=== PATIENT | female | born 1975 | race Hispanic/Latino ===

== ENCOUNTER 2017-04-26 20:29 | Emergency (ER) | payer MEDICAID ==
[2017-04-26] MEDS ORDERED: MECLIZINE HCL 25 MG TABLET ONE (20:45)
[2017-04-26 21:00] LABS: BILIRUBIN,URINE Negative (NEGATIVE); COLOR,URINE Yellow (YELLOW); GLUCOSE, URINE (UA) Negative (NEGATIVE); KETONES,URINE 15 mg/dL (NEGATIVE); LEUKOCYTE ESTERASE ,URINE Negative (NEGATIVE); NITRATE,URINE Negative (NEGATIVE); OCCULT BLOOD,URINE Nonhemolyzed Trace (NEGATIVE); PH,URINE 5.5 (5.0-8.0); PROTEIN,URINE Negative (NEGATIVE); UROBILINOGEN,URINE 0.2 mg/dL (0.2-1.0)
[2017-04-26 21:03] LABS: APPEARANCE,URINE SLIGHTLY CLOUDY (CLEAR)
[2017-04-26 21:07] LABS: HCG,QUAL RESULT NEGATIVE (NEGATIVE)
[2017-04-26 21:11] LABS: BACTERIA,URINE Few /HPF (None Seen); MUCUS,URINE Moderate LPF (None Seen); RBC,URINE None Seen /HPF (0-1); WBC,URINE None Seen /HPF (0-1)
== END 2017-04-26 21:04 | disposition home or self-care (01) ==
LOC: EDH 20:29
DX: G44.209 Tension-type headache, unspecified, not intractable (principal); R42 Dizziness and giddiness; E11.9 Type 2 diabetes mellitus without complications; I10 Essential (primary) hypertension; Z98.51 Tubal ligation status; Z88.0 Allergy status to penicillin
CPT/HCPCS: 81001; 81025

== ENCOUNTER 2017-07-16 22:46 | Emergency (ER) | payer MEDICAID ==
[2017-07-16 23:36] LABS: CREATININE 0.8 mg/dL (0.5-1.5); POTASSIUM 3.3 mmol/L (3.5-5.1)
[2017-07-16 23:42] LABS: BASOPHILS % (AUTO) 0.8 % (0.0-5.0); EOSINOPHILS % (AUTO) 1.6 % (0.0-8.0); HEMATOCRIT 27.6 % (36-48); LYMPHOCYTES % (AUTO) 25.2 % (21.0-51.0); MEAN CORPUSCULAR HEMOGLOBIN 18.9 pg (27.0-33.0); MEAN CORPUSCULAR HGB CONC 30.5 g/dL (32.0-36.0); MEAN CORPUSCULAR VOLUME 61.9 fL (79-99); MONOCYTES % (AUTO) 5.2 % (3.0-13.0); NEUTROPHILS % (AUTO) 67.2 % (40.0-77.0); PLATELET COUNT (AUTO) 366 K/uL (130-400); RED BLOOD CELL COUNT(AUTO) 4.46 MIL/uL (4.00-5.50); RED CELL DISTRIBUTION WIDTH 20.3 % (11.0-15.5); WHITE BLOOD COUNT (AUTO) 12.5 K/uL (4.8-10.8)
[2017-07-16 23:45] LABS: APPEARANCE,URINE Cloudy (CLEAR); BILIRUBIN,URINE Negative (NEGATIVE); COLOR,URINE Red (YELLOW); GLUCOSE, URINE (UA) Negative (NEGATIVE); KETONES,URINE Negative (NEGATIVE); LEUKOCYTE ESTERASE ,URINE Large (NEGATIVE); NITRATE,URINE Negative (NEGATIVE); OCCULT BLOOD,URINE Large (NEGATIVE); PH,URINE 6.5 (5.0-8.0); PROTEIN,URINE POS 1+ (NEGATIVE); UROBILINOGEN,URINE 0.2 mg/dL (0.2-1.0)
[2017-07-16 23:48] LABS: ALBUMIN 3.8 g/dL (3.5-5.0); BILIRUBIN,TOTAL 0.2 mg/dL (0.2-1.0); THYROID STIMULATING HORMONE 0.98 uIU/mL (0.36-3.74); TOTAL PROTEIN, SERUM 7.9 g/dL (6.0-8.3)
[2017-07-16 23:58] LABS: BACTERIA,URINE Few /HPF (None Seen); MUCUS,URINE None Seen LPF (None Seen); RBC,URINE TNTC /HPF (0-1); SQUAMOUS EPITHELIAL CELL,UR None Seen /HPF (0-2); YEAST,URINE BUDDING Few /HPF (None Seen)
[2017-07-16 23:59] LABS: HCG,QUAL RESULT NEGATIVE (NEGATIVE)
[2017-07-17 00:23] LABS: INR 0.92 (0.85-1.15); PROTHROMBIN TIME 9.5 SEC (9.6-11.6)
== END 2017-07-17 01:15 | disposition home or self-care (01) ==
LOC: EDH 22:46
DX: R00.2 Palpitations (principal); R06.00 Dyspnea, unspecified; D64.9 Anemia, unspecified; R31.9 Hematuria, unspecified; I10 Essential (primary) hypertension; E11.9 Type 2 diabetes mellitus without complications; K21.9 Gastro-esophageal reflux disease without esophagitis; J45.909 Unspecified asthma, uncomplicated; Z88.0 Allergy status to penicillin; Z88.8 Allergy status to other drugs, medicaments and biological substances
CPT/HCPCS: 36415; 80053; 81001; 81025; 84443; 85025; 85610; 85730; 93005

== ENCOUNTER 2017-07-30 01:06 | Emergency (ER) | payer MEDICAID ==
[2017-07-30 01:33] LABS: APPEARANCE,URINE Cloudy (CLEAR); BILIRUBIN,URINE Negative (NEGATIVE); COLOR,URINE Dark Yellow (YELLOW); GLUCOSE, URINE (UA) Negative (NEGATIVE); KETONES,URINE Negative (NEGATIVE); LEUKOCYTE ESTERASE ,URINE Moderate (NEGATIVE); NITRATE,URINE Negative (NEGATIVE); OCCULT BLOOD,URINE Negative (NEGATIVE); PROTEIN,URINE Trace (NEGATIVE)
[2017-07-30 01:36] LABS: HCG,QUAL RESULT NEGATIVE (NEGATIVE)
[2017-07-30 01:51] LABS: BACTERIA,URINE None Seen /HPF (None Seen); RBC,URINE None Seen /HPF (0-1); TRICHOMONAS,URINE Few /LPF (None Seen); WBC,URINE 26-50 /HPF (0-1)
[2017-07-30 01:52] LABS: MUCUS,URINE Many LPF (None Seen); SQUAMOUS EPITHELIAL CELL,UR Moderate /HPF (0-2)
[2017-07-30 01:56] LABS: EOSINOPHILS % (AUTO) 1.6 % (0.0-8.0); HEMATOCRIT 26.2 % (36-48); LYMPHOCYTES % (AUTO) 29.9 % (21.0-51.0); MEAN CORPUSCULAR HEMOGLOBIN 20.6 pg (27.0-33.0); MEAN CORPUSCULAR HGB CONC 32.6 g/dL (32.0-36.0); MEAN CORPUSCULAR VOLUME 63.2 fL (79-99); MONOCYTES % (AUTO) 4.6 % (3.0-13.0); NEUTROPHILS % (AUTO) 62.9 % (40.0-77.0); NUCLEATED RED BLOOD CELLS 0.1 % (0.0-0.19); PLATELET COUNT (AUTO) 351 K/uL (130-400); RED BLOOD CELL COUNT(AUTO) 4.15 MIL/uL (4.00-5.50); RED CELL DISTRIBUTION WIDTH 20.1 % (11.0-15.5); WHITE BLOOD COUNT (AUTO) 10.9 K/uL (4.8-10.8)
[2017-07-30] MEDS ORDERED: ONDANSETRON HCL MDV 20ML 2 MG/ML VIAL ONE (01:56)
[2017-07-30] MEDS ORDERED: MORPHINE SULFATE 4 MG/1ML SYG ONE (01:57)
[2017-07-30 02:04] LABS: CREATININE 0.6 mg/dL (0.5-1.5); POTASSIUM 3.6 mmol/L (3.5-5.1)
[2017-07-30 02:08] LABS: ALBUMIN 3.6 g/dL (3.5-5.0); BILIRUBIN,TOTAL 0.2 mg/dL (0.2-1.0); TOTAL PROTEIN, SERUM 7.4 g/dL (6.0-8.3)
[2017-07-30] MEDS ORDERED: SODIUM CHLORIDE 0.9% 1000ML 1,000 ML IV ONE (02:41)
[2017-07-30] MEDS ORDERED: CEFTRIAXONE SODIUM 1 GM ONE (02:41)
[2017-07-30] MEDS ORDERED: METRONIDAZOLE 500 MG TABLET ONE (02:41)
[2017-07-30] MEDS ORDERED: KETOROLAC TROMETHAMINE 30MG/ML ONE (07:01)
== END 2017-07-30 07:21 | disposition home or self-care (01) ==
LOC: EDH 01:06
DX: N39.0 Urinary tract infection, site not specified (principal); A59.03 Trichomonal cystitis and urethritis; N83.292 Other ovarian cyst, left side; D64.9 Anemia, unspecified; J45.909 Unspecified asthma, uncomplicated; E11.9 Type 2 diabetes mellitus without complications; K21.9 Gastro-esophageal reflux disease without esophagitis; I10 Essential (primary) hypertension; Z88.0 Allergy status to penicillin; Z88.8 Allergy status to other drugs, medicaments and biological substances; Z98.51 Tubal ligation status; Z90.49 Acquired absence of other specified parts of digestive tract; Z98.890 Other specified postprocedural states
CPT/HCPCS: 36415; 74176; 76856; 80053; 81001; 81025; 85025; 87088; 96361; 96374; 96375; 99285; A4218; J0696; J1885; J2270; J7030

== ENCOUNTER 2017-08-30 03:18 | Emergency (ER) | payer MEDICAID ==
[2017-08-30 03:40] LABS: APPEARANCE,URINE Cloudy (CLEAR); BILIRUBIN,URINE Negative (NEGATIVE); COLOR,URINE Yellow (YELLOW); GLUCOSE, URINE (UA) Negative (NEGATIVE); KETONES,URINE Trace mg/dL (NEGATIVE); LEUKOCYTE ESTERASE ,URINE Large (NEGATIVE); NITRATE,URINE Negative (NEGATIVE); OCCULT BLOOD,URINE Negative (NEGATIVE); PROTEIN,URINE Negative (NEGATIVE); UROBILINOGEN,URINE 0.2 mg/dL (0.2-1.0)
[2017-08-30 03:42] LABS: HCG,QUAL RESULT NEGATIVE (NEGATIVE)
[2017-08-30 03:49] LABS: BACTERIA,URINE Few /HPF (None Seen)
[2017-08-30 03:50] LABS: TRICHOMONAS,URINE Few /LPF (None Seen)
[2017-08-30] MEDS ORDERED: MORPHINE SULFATE 8 MG/ML VIAL ONE (04:08)
[2017-08-30] MEDS ORDERED: ONDANSETRON HCL MDV 20ML 2 MG/ML VIAL ONE (04:08)
[2017-08-30 04:31] LABS: BASOPHILS % (AUTO) 0.8 % (0.0-5.0); EOSINOPHILS % (AUTO) 1.2 % (0.0-8.0); HEMATOCRIT 33.4 % (36-48); LYMPHOCYTES % (AUTO) 27.2 % (21.0-51.0); MEAN CORPUSCULAR HEMOGLOBIN 25.4 pg (27.0-33.0); MEAN CORPUSCULAR VOLUME 74.8 fL (79-99); MONOCYTES % (AUTO) 4.9 % (3.0-13.0); NEUTROPHILS % (AUTO) 65.9 % (40.0-77.0); PLATELET COUNT (AUTO) 245 K/uL (130-400); RED BLOOD CELL COUNT(AUTO) 4.47 MIL/uL (4.00-5.50); RED CELL DISTRIBUTION WIDTH 34.1 % (11.0-15.5); WHITE BLOOD COUNT (AUTO) 10.5 K/uL (4.8-10.8)
[2017-08-30 04:42] LABS: CREATININE 0.6 mg/dL (0.5-1.5); POTASSIUM 3.3 mmol/L (3.5-5.1)
[2017-08-30 04:46] LABS: ALBUMIN 3.7 g/dL (3.5-5.0); BILIRUBIN,TOTAL 0.4 mg/dL (0.2-1.0); TOTAL PROTEIN, SERUM 7.2 g/dL (6.0-8.3)
[2017-08-30] MEDS ORDERED: LEVOFLOXACIN 750 MG/D5W 150 ML 150 ML ONE (05:18)
[2017-08-30] MEDS ORDERED: IOPAMIDOL-370 75 ML VIAL IV ONE (05:32)
== END 2017-08-30 07:22 | disposition home or self-care (01) ==
LOC: EDH 03:18
DX: N83.292 Other ovarian cyst, left side (principal); N39.0 Urinary tract infection, site not specified; D64.9 Anemia, unspecified; J45.909 Unspecified asthma, uncomplicated; E11.9 Type 2 diabetes mellitus without complications; K21.9 Gastro-esophageal reflux disease without esophagitis; I10 Essential (primary) hypertension; Z98.51 Tubal ligation status; Z90.49 Acquired absence of other specified parts of digestive tract; Z98.890 Other specified postprocedural states; Z88.0 Allergy status to penicillin; Z88.8 Allergy status to other drugs, medicaments and biological substances
CPT/HCPCS: 36415; 74177; 80053; 81001; 81025; 82150; 83690; 85025; 87088; 96365; 96366; 96375; 99285; J1956; J2270; Q9967

== ENCOUNTER 2017-10-03 14:01 | Emergency (ER) | payer MEDICAID ==
[2017-10-03 14:31] LABS: BASOPHILS % (AUTO) 0.8 % (0.0-5.0); EOSINOPHILS % (AUTO) 1.6 % (0.0-8.0); HEMATOCRIT 43.1 % (36-48); LYMPHOCYTES % (AUTO) 22.2 % (21.0-51.0); MEAN CORPUSCULAR HGB CONC 33.9 g/dL (32.0-36.0); MEAN CORPUSCULAR VOLUME 82.4 fL (79-99); MONOCYTES % (AUTO) 3.8 % (3.0-13.0); NEUTROPHILS % (AUTO) 71.6 % (40.0-77.0); PLATELET COUNT (AUTO) 201 K/uL (130-400); RED BLOOD CELL COUNT(AUTO) 5.23 MIL/uL (4.00-5.50); RED CELL DISTRIBUTION WIDTH 26.4 % (11.0-15.5)
[2017-10-03 15:35] LABS: BILIRUBIN,URINE Small (NEGATIVE); GLUCOSE, URINE (UA) Negative (NEGATIVE); KETONES,URINE Trace mg/dL (NEGATIVE); LEUKOCYTE ESTERASE ,URINE Moderate (NEGATIVE); NITRATE,URINE Negative (NEGATIVE); OCCULT BLOOD,URINE Large (NEGATIVE); PH,URINE 5.5 (5.0-8.0); PROTEIN,URINE POS 2+ (NEGATIVE)
[2017-10-03 15:39] LABS: APPEARANCE,URINE CLOUDY (CLEAR)
[2017-10-03 15:40] LABS: COLOR,URINE RED (YELLOW)
[2017-10-03 15:41] LABS: BACTERIA,URINE Rare /HPF (None Seen); RBC,URINE Full Field /HPF (0-1)
[2017-10-03 15:42] LABS: SQUAMOUS EPITHELIAL CELL,UR None Seen /HPF (0-2)
== END 2017-10-03 16:00 | disposition home or self-care (01) ==
LOC: EDH 14:01
DX: D25.9 Leiomyoma of uterus, unspecified (principal); N92.0 Excessive and frequent menstruation with regular cycle; N39.0 Urinary tract infection, site not specified; J45.909 Unspecified asthma, uncomplicated; D64.9 Anemia, unspecified; E11.9 Type 2 diabetes mellitus without complications; K21.9 Gastro-esophageal reflux disease without esophagitis; I10 Essential (primary) hypertension; Z98.51 Tubal ligation status; Z90.49 Acquired absence of other specified parts of digestive tract; Z98.890 Other specified postprocedural states; Z88.0 Allergy status to penicillin; Z88.8 Allergy status to other drugs, medicaments and biological substances
CPT/HCPCS: 36415; 76856; 81001; 84702; 85025

== ENCOUNTER 2018-04-05 07:12 | Emergency (ER) | payer MEDICAID ==
[2018-04-05 08:53] LABS: APPEARANCE,URINE Clear (CLEAR); BILIRUBIN,URINE Negative (NEGATIVE); COLOR,URINE Yellow (YELLOW); GLUCOSE, URINE (UA) Negative (NEGATIVE); KETONES,URINE Negative (NEGATIVE); LEUKOCYTE ESTERASE ,URINE Negative (NEGATIVE); NITRATE,URINE Negative (NEGATIVE); OCCULT BLOOD,URINE Small (NEGATIVE); PH,URINE 5.5 (5.0-8.0); PROTEIN,URINE Negative (NEGATIVE); UROBILINOGEN,URINE 0.2 mg/dL (0.2-1.0)
[2018-04-05 09:00] LABS: HCG,QUAL RESULT NEGATIVE (NEGATIVE)
[2018-04-05 09:19] LABS: BACTERIA,URINE Rare /HPF (None Seen)
[2018-04-05 09:20] LABS: RBC,URINE 0-1 /HPF (0-1); WBC,URINE None Seen /HPF (0-1)
[2018-04-05] MEDS ORDERED: NAPROXEN 250 MG TAB ONE (09:25)
== END 2018-04-05 09:30 | disposition home or self-care (01) ==
LOC: EDH 07:12
DX: D25.9 Leiomyoma of uterus, unspecified (principal); R10.2 Pelvic and perineal pain; J45.909 Unspecified asthma, uncomplicated; E11.9 Type 2 diabetes mellitus without complications; K21.9 Gastro-esophageal reflux disease without esophagitis; I10 Essential (primary) hypertension; E07.9 Disorder of thyroid, unspecified; Z90.49 Acquired absence of other specified parts of digestive tract; Z98.51 Tubal ligation status; Z88.0 Allergy status to penicillin; Z88.8 Allergy status to other drugs, medicaments and biological substances
CPT/HCPCS: 81001; 81025

== ENCOUNTER 2018-12-04 13:08 | Emergency (ER) | payer MEDICAID | END 2018-12-04 13:54 | disposition home or self-care (01) | LOC: EDH 13:08 | DX: B02.9 Zoster without complications (principal); J45.909 Unspecified asthma, uncomplicated; E11.9 Type 2 diabetes mellitus without complications; K21.9 Gastro-esophageal reflux disease without esophagitis; I10 Essential (primary) hypertension; E07.9 Disorder of thyroid, unspecified; Z88.0 Allergy status to penicillin; Z88.8 Allergy status to other drugs, medicaments and biological substances ==

== ENCOUNTER 2020-06-29 15:16 | Emergency (ER) | payer MEDICAID ==
[2020-06-29] MEDS ORDERED: SODIUM CHLORIDE 0.9% 1000ML 1,000 ML IV ONE (15:46)
[2020-06-29] MEDS ORDERED: ACETAMINOPHEN-CODEINE 300/30MG TAB ONE (15:46)
[2020-06-29 15:47] LABS: BASOPHILS % (AUTO) 0.7 % (0.0-5.0); EOSINOPHILS % (AUTO) 2.8 % (0.0-8.0); HEMATOCRIT 38.8 % (36-48); LYMPHOCYTES % (AUTO) 33.7 % (21.0-51.0); MEAN CORPUSCULAR HEMOGLOBIN 30.4 pg (27.0-33.0); MEAN CORPUSCULAR HGB CONC 35.6 g/dL (32.0-36.0); MEAN CORPUSCULAR VOLUME 85.5 fL (79-99); MONOCYTES % (AUTO) 5.4 % (3.0-13.0); PLATELET COUNT (AUTO) 221 K/uL (130-400); RED BLOOD CELL COUNT(AUTO) 4.54 MIL/uL (4.00-5.50)
[2020-06-29 16:04] LABS: BILIRUBIN,TOTAL 0.3 mg/dL (0.2-1.0); CREATININE 0.9 mg/dL (0.5-1.5); TOTAL PROTEIN, SERUM 7.4 g/dL (6.0-8.3)
[2020-06-29 16:05] LABS: POTASSIUM 2.9 mmol/L (3.5-5.1)
[2020-06-29] MEDS ORDERED: POTASSIUM BICARB/CIT AC 25 MEQ TABLET.EFF ONE (16:38)
[2020-06-29 16:57] LABS: APPEARANCE,URINE Clear (CLEAR); BILIRUBIN,URINE Negative (NEGATIVE); COLOR,URINE Yellow (YELLOW); GLUCOSE, URINE (UA) Negative (NEGATIVE); KETONES,URINE Negative (NEGATIVE); LEUKOCYTE ESTERASE ,URINE Negative (NEGATIVE); NITRATE,URINE Negative (NEGATIVE); OCCULT BLOOD,URINE Negative (NEGATIVE); PH,URINE 6.5 (5.0-8.0); PROTEIN,URINE Negative (NEGATIVE); UROBILINOGEN,URINE 0.2 mg/dL (0.2-1.0)
== END 2020-06-29 18:05 | disposition home or self-care (01) ==
LOC: EDH 15:16
DX: H66.92 Otitis media, unspecified, left ear (principal); E86.0 Dehydration; J45.909 Unspecified asthma, uncomplicated; T50.905A Adverse effect of unspecified drugs, medicaments and biological substances, initial encounter; E11.9 Type 2 diabetes mellitus without complications; K21.9 Gastro-esophageal reflux disease without esophagitis; I10 Essential (primary) hypertension; Z88.8 Allergy status to other drugs, medicaments and biological substances; Y92.89 Other specified places as the place of occurrence of the external cause
CPT/HCPCS: 36415; 80053; 81003; 81025; 85025; 93005 ×2; 96360; 96361; 99284; J7030

== ENCOUNTER 2020-12-30 14:10 | Emergency (ER) | payer MEDICAID ==
[~2020-12-30] VITALS: Ht 149.9 cm; Wt 88.9 kg
[2020-12-30 15:32] VITALS: BP 147/91
[2020-12-30 15:37] LABS: BASOPHILS % (AUTO) 0.5 % (0.0-5.0); EOSINOPHILS % (AUTO) 1.9 % (0.0-8.0); HEMATOCRIT 37.6 % (36-48); LYMPHOCYTES % (AUTO) 27.3 % (21.0-51.0); MEAN CORPUSCULAR HEMOGLOBIN 30.2 pg (27.0-33.0); MEAN CORPUSCULAR HGB CONC 33.8 g/dL (32.0-36.0); MEAN CORPUSCULAR VOLUME 89.3 fL (79-99); MONOCYTES % (AUTO) 4.4 % (3.0-13.0); NEUTROPHILS % (AUTO) 65.4 % (40.0-77.0); PLATELET COUNT (AUTO) 189 K/uL (130-400); RED BLOOD CELL COUNT(AUTO) 4.21 MIL/uL (4.00-5.50); RED CELL DISTRIBUTION WIDTH 13.4 % (11.0-15.5); WHITE BLOOD COUNT (AUTO) 9.9 K/uL (4.8-10.8)
[2020-12-30 15:51] LABS: CREATININE 0.7 mg/dL (0.5-1.5); POTASSIUM 3.4 mmol/L (3.5-5.1)
[2020-12-30 15:56] LABS: ALBUMIN 3.3 g/dL (3.5-5.0); BILIRUBIN,TOTAL 0.3 mg/dL (0.2-1.0); TOTAL PROTEIN, SERUM 6.7 g/dL (6.0-8.3)
[2020-12-30 17:20] VITALS: BP 138/82
== END 2020-12-30 17:33 | disposition home or self-care (01) ==
LOC: EDH 14:10
DX: R53.83 Other fatigue (principal); Z20.822 Contact with and (suspected) exposure to COVID-19; I10 Essential (primary) hypertension; M32.9 Systemic lupus erythematosus, unspecified; J45.909 Unspecified asthma, uncomplicated; E66.9 Obesity, unspecified; Z79.52 Long term (current) use of systemic steroids; Z88.8 Allergy status to other drugs, medicaments and biological substances; Z68.39 Body mass index [BMI] 39.0-39.9, adult
CPT/HCPCS: 36415; 71045; 80053; 85025; 87635; 99284; C9803

== ENCOUNTER → 2021-03-29 | Outpatient (CLI) | payer MEDICAID | END | disposition home or self-care (01) | LOC: OIH 08:53 | PROVIDERS: ATTEND Internal Medicine Cardiovascular Disease | DX: I11.9 Hypertensive heart disease without heart failure (principal); E66.9 Obesity, unspecified | CPT/HCPCS: 93306; 93356 ==

== ENCOUNTER 2021-04-25 17:28 | Emergency (ER) | payer MEDICAID ==
[~2021-04-25] VITALS: Ht 147.3 cm; Wt 93.9 kg
[2021-04-25] MEDS ORDERED: CYCLOBENZAPRINE HCL 10 MG TABLET PO ONE (23:00)
[2021-04-25] MEDS ORDERED: KETOROLAC 30MG VIAL (30MG/ML) IV ONE (23:00)
[2021-04-25] MEDS ORDERED: PROMETHAZINE HCL 25 MG/ML 1ML AMPULE IM ONE ×2 (23:00→23:30)
[2021-04-25] MEDS ORDERED: 0.9%NACL 1000ML 1,000 ML IV ONE (23:00)
[2021-04-25 23:03] LABS: BASOPHILS % (AUTO) 0.6 % (0.0-5.0); EOSINOPHILS % (AUTO) 1.6 % (0.0-8.0); HEMATOCRIT 44.5 % (36-48); LYMPHOCYTES % (AUTO) 23.5 % (21.0-51.0); MEAN CORPUSCULAR HEMOGLOBIN 29.1 pg (27.0-33.0); MEAN CORPUSCULAR HGB CONC 34.2 g/dL (32.0-36.0); MEAN CORPUSCULAR VOLUME 85.2 fL (79-99); MONOCYTES % (AUTO) 3.4 % (3.0-13.0); NEUTROPHILS % (AUTO) 70.3 % (40.0-77.0); PLATELET COUNT (AUTO) 325 K/uL (130-400); RED BLOOD CELL COUNT(AUTO) 5.22 MIL/uL (4.00-5.50); RED CELL DISTRIBUTION WIDTH 13.2 % (11.0-15.5); WHITE BLOOD COUNT (AUTO) 17.6 K/uL (4.8-10.8)
[2021-04-25 23:07] LABS: APPEARANCE,URINE Cloudy (CLEAR); BILIRUBIN,URINE Negative (NEGATIVE); COLOR,URINE Yellow (YELLOW); GLUCOSE, URINE (UA) Negative (NEGATIVE); KETONES,URINE Negative (NEGATIVE); LEUKOCYTE ESTERASE ,URINE Negative (NEGATIVE); NITRATE,URINE Negative (NEGATIVE); OCCULT BLOOD,URINE Negative (NEGATIVE); PROTEIN,URINE Negative (NEGATIVE); UROBILINOGEN,URINE 0.2 mg/dL (0.2-1.0)
[2021-04-25 23:10] LABS: CREATININE 0.8 mg/dL (0.5-1.5); POTASSIUM 3.4 mmol/L (3.5-5.1)
[2021-04-25 23:12] LABS: ALBUMIN 4.3 g/dL (3.5-5.0); BILIRUBIN,TOTAL 0.3 mg/dL (0.2-1.0); TOTAL PROTEIN, SERUM 8.2 g/dL (6.0-8.3)
[2021-04-26 00:32] VITALS: BP 125/87
== END 2021-04-26 00:48 | disposition home or self-care (01) ==
LOC: EDH 17:52
DX: G43.909 Migraine, unspecified, not intractable, without status migrainosus (principal); J45.909 Unspecified asthma, uncomplicated; K21.9 Gastro-esophageal reflux disease without esophagitis; Z20.822 Contact with and (suspected) exposure to COVID-19; Z90.710 Acquired absence of both cervix and uterus; Z90.49 Acquired absence of other specified parts of digestive tract; Z98.51 Tubal ligation status; Z79.899 Other long term (current) drug therapy
CPT/HCPCS: 36415; 80053; 81003; 85025; 87635; 87804 ×2; 96361; 96372; 96374; 99284; C9803; J1885; J2550 ×2

== ENCOUNTER 2021-12-06 21:24 | Emergency (ER) | payer MEDICAID ==
[~2021-12-06] VITALS: Ht 147.3 cm; Wt 89.4 kg
[2021-12-06 21:56] LABS: BASOPHILS % (AUTO) 0.5 % (0.0-5.0); EOSINOPHILS % (AUTO) 1.7 % (0.0-8.0); HEMATOCRIT 41.5 % (36-48); LYMPHOCYTES % (AUTO) 28.1 % (21.0-51.0); MEAN CORPUSCULAR HEMOGLOBIN 29.8 pg (27.0-33.0); MEAN CORPUSCULAR HGB CONC 34.2 g/dL (32.0-36.0); MEAN CORPUSCULAR VOLUME 87.2 fL (79-99); MONOCYTES % (AUTO) 5.6 % (3.0-13.0); NEUTROPHILS % (AUTO) 63.7 % (40.0-77.0); PLATELET COUNT (AUTO) 245 K/uL (130-400); RED BLOOD CELL COUNT(AUTO) 4.76 MIL/uL (4.00-5.50); RED CELL DISTRIBUTION WIDTH 12.6 % (11.0-15.5); WHITE BLOOD COUNT (AUTO) 15.5 K/uL (4.8-10.8)
[2021-12-06 21:57] LABS: APPEARANCE,URINE CLOUDY (CLEAR); BILIRUBIN,URINE NEGATIVE (NEGATIVE); COLOR,URINE YELLOW (YELLOW); GLUCOSE, URINE (UA) NEGATIVE (NEGATIVE); KETONES,URINE NEGATIVE (NEGATIVE); LEUKOCYTE ESTERASE ,URINE MODERATE (NEGATIVE); NITRATE,URINE POSITIVE (NEGATIVE); OCCULT BLOOD,URINE LARGE (NEGATIVE); PROTEIN,URINE 100 mg/dL (NEGATIVE); UROBILINOGEN,URINE 0.2 mg/dL (0.2-1.0)
[2021-12-06 22:05] LABS: WBC,URINE 51-100 /HPF (0-1)
[2021-12-06 22:06] LABS: BACTERIA,URINE Moderate /HPF (None Seen); MUCUS,URINE Few LPF (None Seen); SQUAMOUS EPITHELIAL CELL,UR Few /HPF (0-2)
[2021-12-06] MEDS ORDERED: KETOROLAC 15MG/ML VIAL (15MG/ML) ONE (22:12)
[2021-12-06] MEDS ORDERED: PHENAZOPYRIDINE HCL 200 MG TABLET ONE (22:12)
[2021-12-06] MEDS ORDERED: CEFTRIAXONE 1G VIAL ONE (22:12)
[2021-12-06 22:21] LABS: CREATININE 0.7 mg/dL (0.5-1.5); POTASSIUM 3.7 mmol/L (3.5-5.1)
[2021-12-06 22:26] LABS: ALBUMIN 4.1 g/dL (3.5-5.0); TOTAL PROTEIN, SERUM 7.8 g/dL (6.0-8.3)
[2021-12-06] MEDS ORDERED: CEFTRIAXONE 1G VIAL IVP ONE (22:30)
[2021-12-06] MEDS ORDERED: PHENAZOPYRIDINE HCL 200 MG TABLET PO ONE (22:30)
[2021-12-06] MEDS ORDERED: KETOROLAC 15MG/ML VIAL (15MG/ML) IV ONE (22:30)
[2021-12-06] MEDS ORDERED: CEPH500B PO (22:45)
[2021-12-06] MEDS ORDERED: PHEN-847 PO (22:45)
[2021-12-06 22:46] VITALS: BP 154/85
== END 2021-12-06 23:02 | disposition home or self-care (01) ==
LOC: EDH 21:24
DX: N39.0 Urinary tract infection, site not specified (principal); I10 Essential (primary) hypertension; J45.909 Unspecified asthma, uncomplicated; K21.9 Gastro-esophageal reflux disease without esophagitis; M32.9 Systemic lupus erythematosus, unspecified; Z79.1 Long term (current) use of non-steroidal anti-inflammatories (NSAID); Z88.8 Allergy status to other drugs, medicaments and biological substances; Z90.49 Acquired absence of other specified parts of digestive tract; Z90.721 Acquired absence of ovaries, unilateral
CPT/HCPCS: 99284; 96374; 96375; 80053; 85025; 87077; 87088; 87186; 81001; 36415; J0696; J1885

== ENCOUNTER 2022-05-09 17:34 | Emergency (ER) | payer MEDICAID ==
[~2022-05-09] VITALS: Ht 147.3 cm; Wt 93.4 kg
[~2022-05-09 17:34] MED LIST: CEPH500B PO; NAPR-1180 PO; NIRM1TAB5 PO; PHEN-847 PO
[2022-05-09] MEDS ORDERED: ACETAMINOPHEN 500 MG TABLET PO ONE (18:00)
[2022-05-09 18:56] LABS: BASOPHILS % (AUTO) 0.8 % (0.0-5.0); EOSINOPHILS % (AUTO) 2.7 % (0.0-8.0); LYMPHOCYTES % (AUTO) 29.7 % (21.0-51.0); MEAN CORPUSCULAR HEMOGLOBIN 29.9 pg (27.0-33.0); MEAN CORPUSCULAR VOLUME 87.9 fL (79-99); MONOCYTES % (AUTO) 5.9 % (3.0-13.0); NEUTROPHILS % (AUTO) 60.6 % (40.0-77.0); PLATELET COUNT (AUTO) 237 K/uL (130-400); RED BLOOD CELL COUNT(AUTO) 4.55 MIL/uL (4.00-5.50); RED CELL DISTRIBUTION WIDTH 12.3 % (11.0-15.5); WHITE BLOOD COUNT (AUTO) 9.8 K/uL (4.8-10.8)
[2022-05-09 19:00] LABS: APPEARANCE,URINE CLEAR (CLEAR); BILIRUBIN,URINE NEGATIVE (NEGATIVE); COLOR,URINE LIGHT-YELLOW (YELLOW); GLUCOSE, URINE (UA) NEGATIVE (NEGATIVE); KETONES,URINE NEGATIVE (NEGATIVE); LEUKOCYTE ESTERASE ,URINE NEGATIVE Leu/uL (NEGATIVE); NITRATE,URINE NEGATIVE (NEGATIVE); OCCULT BLOOD,URINE NEGATIVE (NEGATIVE); PROTEIN,URINE 10 mg/dL (NEGATIVE); UROBILINOGEN,URINE 0.2 mg/dL (0.2-1.0)
[2022-05-09 19:02] LABS: BACTERIA,URINE RARE /HPF (None Seen); MUCUS,URINE RARE LPF (None Seen); SQUAMOUS EPITHELIAL CELL,UR MOD /HPF (0-2)
[2022-05-09 19:07] LABS: CREATININE 0.9 mg/dL (0.5-1.5); POTASSIUM 3.2 mmol/L (3.5-5.1)
[2022-05-09 19:12] LABS: ALBUMIN 3.8 g/dL (3.5-5.0); TOTAL PROTEIN, SERUM 7.2 g/dL (6.0-8.3)
[2022-05-09 19:54] VITALS: BP 145/92
== END 2022-05-09 21:09 | disposition home or self-care (01) ==
LOC: EDH 17:34
DX: B34.9 Viral infection, unspecified (principal); R50.9 Fever, unspecified; R53.1 Weakness; F41.9 Anxiety disorder, unspecified; J45.909 Unspecified asthma, uncomplicated; K21.9 Gastro-esophageal reflux disease without esophagitis; I10 Essential (primary) hypertension; Z79.1 Long term (current) use of non-steroidal anti-inflammatories (NSAID); Z20.822 Contact with and (suspected) exposure to COVID-19; Z88.8 Allergy status to other drugs, medicaments and biological substances; Z90.49 Acquired absence of other specified parts of digestive tract; Z90.721 Acquired absence of ovaries, unilateral
CPT/HCPCS: 99283; 87635; 80053; 85025; 81001; 36415; C9803

== ENCOUNTER 2022-10-09 21:55 | Observation (INO) | payer MEDICAID ==
[~2022-10-09] VITALS: Ht 147.3 cm; Wt 100.7 kg
[2022-10-09] MEDS ORDERED: NITROGLYCERIN 0.4 MG SL TAB SL ONE (22:04)
[2022-10-09] MEDS: NITROGLYCERIN 0.4 MG SL TAB SL PRN ×2 (22:10→22:15)
[2022-10-09] MEDS ORDERED: ACETAMINOPHEN 500 MG TABLET ONE (22:26)
[2022-10-09] MEDS ORDERED: ONDANSETRON 4MG INJ ONE (22:27)
[2022-10-09] MEDS ORDERED: ASPIRIN 81 MG EC TAB PO ONE (22:30)
[2022-10-09 22:47] LABS: BASOPHILS % (AUTO) 0.6 % (0.0-5.0); EOSINOPHILS % (AUTO) 2.4 % (0.0-8.0); HEMATOCRIT 39.1 % (36-48); LYMPHOCYTES % (AUTO) 26.9 % (21.0-51.0); MEAN CORPUSCULAR HEMOGLOBIN 29.1 pg (27.0-33.0); MEAN CORPUSCULAR HGB CONC 34.3 g/dL (32.0-36.0); MONOCYTES % (AUTO) 6.1 % (3.0-13.0); NEUTROPHILS % (AUTO) 63.4 % (40.0-77.0); PLATELET COUNT (AUTO) 217 K/uL (130-400); WHITE BLOOD COUNT (AUTO) 8.6 K/uL (4.8-10.8)
[2022-10-09 23:05] LABS: INR 0.93 (0.85-1.15); PROTHROMBIN TIME 10.5 SEC (9.6-11.6)
[2022-10-09 23:06] LABS: PARTIAL THROMBOPLASTIN TIME 28.8 SEC (26.3-35.5)
[2022-10-09 23:07] LABS: BILIRUBIN,URINE NEGATIVE (NEGATIVE); COLOR,URINE YELLOW (YELLOW); GLUCOSE, URINE (UA) 30 mg/dL (NEGATIVE); KETONES,URINE NEGATIVE (NEGATIVE); LEUKOCYTE ESTERASE ,URINE 75 Leu/uL (NEGATIVE); NITRATE,URINE NEGATIVE (NEGATIVE); PH,URINE 5.5 (5.0-8.0); PROTEIN,URINE 30 mg/dL (NEGATIVE)
[2022-10-09 23:08] LABS: CREATININE 0.6 mg/dL (0.5-1.5); POTASSIUM 3.4 mmol/L (3.5-5.1)
[2022-10-09 23:10] LABS: APPEARANCE,URINE HAZY (CLEAR)
[2022-10-09 23:11] LABS: TOTAL PROTEIN, SERUM 7.4 g/dL (6.0-8.3)
[2022-10-09 23:13] LABS: MUCUS,URINE FEW LPF (None Seen); RBC,URINE 0-1 /HPF (0-1); SQUAMOUS EPITHELIAL CELL,UR MOD /HPF (0-2)
[2022-10-10 00:36] LABS: B-TYPE NATRIURETIC PEPTIDE 40 pg/mL (0-100)
[2022-10-10 03:20] VITALS: BP 156/83
[2022-10-10] MEDS ORDERED: ACETAMINOPHEN 500 MG TABLET ONE (03:21)
== END 2022-10-10 03:30 | disposition left against medical advice (07) ==
LOC: EDH 21:55 → EDHIP 21:56
PROVIDERS: ADMIT Internal Medicine Hematology & Oncology; ATTEND Internal Medicine Hematology & Oncology
DX: I24.9 Acute ischemic heart disease, unspecified (principal); Z20.822 Contact with and (suspected) exposure to COVID-19; I10 Essential (primary) hypertension; J45.909 Unspecified asthma, uncomplicated; K21.9 Gastro-esophageal reflux disease without esophagitis; F41.9 Anxiety disorder, unspecified; Z79.899 Other long term (current) drug therapy; Z98.890 Other specified postprocedural states; Z90.710 Acquired absence of both cervix and uterus; Z90.49 Acquired absence of other specified parts of digestive tract; Z98.891 History of uterine scar from previous surgery; Z98.51 Tubal ligation status; Z90.721 Acquired absence of ovaries, unilateral
CPT/HCPCS: 99285; 82550; 84484 ×2; 80061; 80053; 83880; 85025; 85610; 85730; 87088; 87804 ×2; 81001; 36415; 87635; 71045; 93005; C9803; J2405; G0378 ×2

== ENCOUNTER 2023-01-26 20:08 | Emergency (ER) | payer MEDICAID ==
[~2023-01-26] VITALS: Ht 147.3 cm; Wt 98.9 kg
[2023-01-26 22:18] LABS: RAPID GROUP A STREP negative (NEGATIVE)
[2023-01-26 22:23] LABS: SARS-CoV-2, RNA, NAAT NEGATIVE SARS CoV-2 (NEGATIVE)
[2023-01-26 22:27] LABS: INFLUENZA TYPE A Negative For Type A (NEGATIVE); INFLUENZA TYPE B Negative For Type B (NEGATIVE)
[2023-01-26] MEDS ORDERED: PRED20TA3 PO (22:52)
[2023-01-26] MEDS ORDERED: LORA-868 PO (22:52)
[2023-01-26] MEDS ORDERED: PREDNISONE 5 MG TABLET ONE (23:26)
[2023-01-26] MEDS ORDERED: PREDNISONE 10 MG TABLET ONE (23:26)
[2023-01-26 23:36] VITALS: BP 136/78; PULSE 73; RESP 17; O2SAT 97
[2023-01-27] MEDS ORDERED: PREDNISONE 10 MG TABLET PO ONE
== END 2023-01-26 23:37 | disposition home or self-care (01) ==
LOC: EDH 20:08
DX: J45.909 Unspecified asthma, uncomplicated (principal); J02.9 Acute pharyngitis, unspecified; I10 Essential (primary) hypertension; E11.9 Type 2 diabetes mellitus without complications; E78.00 Pure hypercholesterolemia, unspecified; I21.9 Acute myocardial infarction, unspecified; K21.9 Gastro-esophageal reflux disease without esophagitis; Z20.822 Contact with and (suspected) exposure to COVID-19; Z90.49 Acquired absence of other specified parts of digestive tract; Z90.89 Acquired absence of other organs; Z90.710 Acquired absence of both cervix and uterus; Z98.890 Other specified postprocedural states; Z88.8 Allergy status to other drugs, medicaments and biological substances
CPT/HCPCS: 99284; 87635; 87880; 87804 ×2; 93005; C9803; J7512 ×2

== ENCOUNTER 2023-05-02 15:04 | Emergency (ER) | payer MEDICAID ==
[~2023-05-02] VITALS: Ht 147.3 cm; Wt 96.2 kg
[~2023-05-02 15:04] MED LIST changes: +LORA-868 PO; +PRED20TA3 PO
[2023-05-02 15:09] VITALS: BP 143/98; PULSE 105; RESP 20
== END 2023-05-02 15:33 | disposition left against medical advice (07) ==
LOC: EDH 15:04
DX: R50.9 Fever, unspecified (principal); Z53.21 Procedure and treatment not carried out due to patient leaving prior to being seen by health care provider
CPT/HCPCS: 99281

== ENCOUNTER 2023-09-02 19:05 | Emergency (ER) | payer MEDICAID ==
[~2023-09-02] VITALS: Ht 147.3 cm; Wt 97.1 kg
[2023-09-02] MEDS: IBUPROFEN 600 MG TABLET PO ONE (20:15)
[2023-09-02 21:55] VITALS: BP 148/76; PULSE 66; RESP 16; O2SAT 99
== END 2023-09-02 21:58 | disposition home or self-care (01) ==
LOC: EDH 19:05
DX: S83.92XA Sprain of unspecified site of left knee, initial encounter (principal); S93.402A Sprain of unspecified ligament of left ankle, initial encounter; S80.01XA Contusion of right knee, initial encounter; K21.9 Gastro-esophageal reflux disease without esophagitis; I10 Essential (primary) hypertension; J45.909 Unspecified asthma, uncomplicated; Z88.8 Allergy status to other drugs, medicaments and biological substances; Z90.49 Acquired absence of other specified parts of digestive tract; Z90.710 Acquired absence of both cervix and uterus; W18.39XA Other fall on same level, initial encounter; Y93.89 Activity, other specified; Y92.89 Other specified places as the place of occurrence of the external cause; Y99.8 Other external cause status
CPT/HCPCS: 73562; 73610

== ENCOUNTER 2024-10-03 20:49 | Emergency (ER) | payer MEDICAID ==
[~2024-10-03] VITALS: Ht 147.3 cm; Wt 104.3 kg
[2024-10-03] MEDS: ketOROlac 60 MG VIAL (30MG/ML) IM ONE (21:13)
--- NOTE | 2024-10-03 21:50 | HMCIMG ---
LEFT KNEE RADIOGRAPHS - 3 VIEWS INDICATION: Pain COMPARISON: None FINDINGS: AP, lateral, and oblique views. No fracture or dislocation identified. No significant joint effusion is present. Overlying soft tissues appear normal. No radiopaque foreign body noted. IMPRESSION: No evidence for fracture or dislocation.
--- NOTE | 2024-10-03 22:43 | ERN ---
ED Note History of Present Illness Stated Complaint: LEFT KNEE PAIN Chief Complaint: Knee Injury/Swelling Time Seen by MD: 20:51 Time Seen by Midlevel: 20:51 Allergies: Coded Allergies: lisinopril (Unverified Allergy, Unknown, 12/30/20) meclizine (Unverified Allergy, Unknown, 03/30/19) Home Meds Active Scripts Prednisone (Prednisone) 20 Mg Tablet, 1 TAB PO AD for 6 Days, #14 TAB 0 Refills TAKE 3 TAB BY MOUTH daily X3 DAYS, THEN TAKE 2 TAB BY MOUTH daily X2 DAYS, THEN TAKE 1 TAB BY MOUTH ONCE A DAY X1 DAY. Prov:LANG STEELE MD 01/26/23 Loratadine/Pseudoephedrine (Claritin-D 24 Hour Tablet) 10 Mg-240 Mg Tab.er.24h, 1 EACH PO DAILY, #30 TAB Prov:LANG STEELE MD 01/26/23 Naproxen (Naprosyn) 500 Mg Tablet, 500 MG PO BIDPC for 10 Days, #20 TAB 0 Refills Prov:WENDY LOYA MD 02/22/22 Nirmatrelvir/Ritonavir (Paxlovid 150-100 mg Pack (Eua)) 1 Each Tablet, 1 EACH PO BID for 5 Days, #10 TAB Prov:WENDY LOYA MD 02/22/22 Phenazopyridine HCl (Pyridium) 200 Mg Tab, 200 MG PO TIDPC, #6 TAB TAKE WITH FOOD TO PREVENT STOMACH UPSET. Prov:DAVEY GARCIA 12/06/21 Cephalexin Monohydrate (Keflex) 500 Mg Cap, 500 MG PO QID for 7 Days, #28 CAP Prov:DAVEY GARCIA 12/06/21 Past Medical History Past Medical History: Anemia, Anxiety, Asthma, Hypertension, Migraines Additional Past Medical Hx: HX OF LUPUS, ACID REFLUX; IRREGULAR HEART RYTHM, ADHD Surgical History: Hysterectomy, Tonsillectomy, Cholecystectomy, BTL, Surgical History Other: TUBAL LIGATION; EYE SX; NOSE SX Family History: Negative Social History: Negative History: Not Applicable Initial Vital Sign VS Vital Signs Date Time Temp Pulse Resp B/P (MAP) Pulse Ox O2 Delivery O2 Flow Rate FiO2 10/03/24 20:51 97.5 82 16 136/99 97 Room Air ED Course ED Course Orders Procedure Category Date Status Time Knee 3vws Lt RAD 10/03/24 Resulted 21:03 Ketorolac 60mg/2ml PHA 10/03/24 Complete (Toradol 60mg/2ml) 21:30 Current Medications Medications (Trade) Dose Ordered Sig/Gunnar Route PRN Reason Start Time Stop Time Status Last Admin Dose Admin Ketorolac Tromethamine (toRADol 60MG/ 2ML) 60 mg ONCE ONCE IM 10/03/24 21:30 10/03/24 21:31 DC 10/03/24 21:13 Vital Signs Date Time Temp Pulse Resp B/P (MAP) Pulse Ox O2 Delivery O2 Flow Rate FiO2 10/03/24 20:51 97.5 82 16 136/99 97 Room Air DX & DISP Disposition: Discharge Departure Impression: Primary Impression: Left knee pain Condition: Stable Scripts Ibuprofen (Ibuprofen) 600 Mg Tablet 600 MG PO Q6H PRN for PAIN, #15 TAB Prov: GRACE MAGALLON 10/03/24 Additional Instructions: Your knee xray is normal. There is no fractures or dislocations seen. You need to follow up with your orthopedic doctor and I recommend you get physical therapy. If anything worsen please return to ER. FOLLOW-UP WITH PRIMARY CARE PROVIDER IN 1 TO 2 DAYS. TAKE MEDICATIONS DIRECTED HERE IN THE EMERGENCY ROOM. OKAY TO CONTINUE HOME MEDICATIONS UNLESS OTHERWISE DISCUSSED DURING YOUR VISIT IN THE EMERGENCY ROOM TODAY. RETURN TO YOUR NEAREST EMERGENCY ROOM IF SYMPTOMS WORSEN OR IF THERE IS NO IMPROVEMENT. CALL 911 IF YOU NEED IMMEDIATE ASSISTANCE. TAKE TYLENOL [id number] NEEDED AND IF NO CONTRAINDICATIONS ARE PRESENT. INCREASE ORAL HYDRATION. A WOUND CULTURE OR URINE CULTURE WAS ORDERED HERE IN THE EMERGENCY ROOM DEPARTMENT PLEASE FOLLOW-UP WITH PRIMARY CARE PROVIDER AND ADVISE THEM TO GET REPEAT PORTS FROM OUR FACILITY. IF YOU HAD ANY MIGUELITO WRAP/SPLINTS THAT WERE APPLIED HERE, PLEASE DO NOT REMOVE THEM UNTIL YOU SEE YOUR PRIMARY CARE OR SPECIALTY. Referrals: PURVI GHOTRA MD (PCP) Time of Disposition: 22:44 I have reviewed the case, and I agree with, Diagnosis and Plan GRACE MAGALLON Oct 03, 2024 22:43
[2024-10-03] MEDS ORDERED: IBUP-2070 PO (22:45)
--- NOTE | 2024-10-03 22:47 | NUR ---
MIGUELITO BANDAGE APPLIED TO KNEE, TOLERATED WELL
[2024-10-03 22:48] VITALS: BP 133/86; PULSE 80; RESP 18; TEMP 98; O2SAT 97
== END 2024-10-03 22:51 | disposition home or self-care (01) ==
LOC: EDH 20:49
DX: M25.562 Pain in left knee (principal); I10 Essential (primary) hypertension; J45.909 Unspecified asthma, uncomplicated; G43.909 Migraine, unspecified, not intractable, without status migrainosus; F41.9 Anxiety disorder, unspecified; Z79.899 Other long term (current) drug therapy; Z88.8 Allergy status to other drugs, medicaments and biological substances; Z90.49 Acquired absence of other specified parts of digestive tract; Z90.710 Acquired absence of both cervix and uterus; X58.XXXA Exposure to other specified factors, initial encounter; Y93.89 Activity, other specified; Y92.89 Other specified places as the place of occurrence of the external cause; Y99.8 Other external cause status
CPT/HCPCS: 99283; 73562; 96372; J1885